=== PATIENT | male | born 1985 | race Caucasian/White ===

== ENCOUNTER 2017-04-05 19:54 | Emergency (ER) | payer OTHER ==
[~2017-04-05] VITALS: Ht 177.8 cm; Wt 75.0 kg
[~2017-04-05 19:54] MED LIST: MOTRIN800 MG PO; NAPROSYN500 MG PO; NO MEDS; NOHOMEMEDS; NORCO 5/3251 TABLET PO; ULTRAM50 MG PO
[2017-04-05] MEDS ORDERED: PERCOCET 5/31 TABLET PO (22:14)
[2017-04-05 22:25] VITALS: BP 134/81
== END 2017-04-05 22:37 | disposition home or self-care (01) ==
LOC: RME 19:54 → EME 19:54 → RME 22:37
DX: S32.019A Unspecified fracture of first lumbar vertebra, initial encounter for closed fracture (principal); V47.0XXA Car driver injured in collision with fixed or stationary object in nontraffic accident, initial encounter
CPT/HCPCS: 99281; 99284